=== PATIENT | female | born 1965 | race Caucasian/White ===

== ENCOUNTER 2016-04-20 05:02 | Inpatient (IN) | payer OTHER ==
[2016-04-20] MEDS ORDERED: ONDANSETRON 4 MG/2 ML VIAL ONE (05:13)
[2016-04-20] MEDS ORDERED: ONDANSETRON 4 MG/2 ML VIAL IVP ONE (05:15)
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
[2016-04-20] MEDS ORDERED: NS 1,000 ML IV ONE ×2 (05:16→05:56)
[2016-04-20] MEDS ORDERED: NALOXONE HCL 0.4 MG/ML INJ ONE (05:21)
[2016-04-20] MEDS ORDERED: NALOXONE HCL 0.4 MG/ML INJ IVP ONE (05:26)
--- NOTE | 2016-04-20 05:26 | CPEKG ---
Heart Rate: 124 RR Interval: 484 P-R Interval: 176 QRSD Interval: 94 QT Interval: 336 QTC Interval: 483 P Val[place]: 51 QRS Valmeyer: 101 T Wave Valmeyer: 233 EKG Severity - ABNORMAL ECG - EKG Impression: sinus rhythm EKG Impression: PROBABLE RVH W/ SECONDARY REPOL ABNORMALITY EKG Impression: significant artifact Electronically Signed By: Jadyn Scruggs 20-Apr-2016 13:16:40
[2016-04-20 05:29] LABS: % IMMATURE GRANULYOCYTES 0.4 % (0.0-1.1); ABSOLUTE IMMATURE GRANULOCYTES 0.05 10^3/uL (0.00-0.10); ADD DIFF? NO; ADD MORPH? NO; ADD SCAN? NO; ATYPICAL LYMPHOCYTE FLAG 0 (0-99); FRAGMENT RBC FLAG 0 (0-99); HEMATOCRIT 38.7 % (38.0-47.0); HEMOGLOBIN 12.7 g/dL (12.6-16.3); LEFT SHIFT FLG 0 (0-99); LIPEMIA HEMOLYSIS FLAG 80 (0-99); MEAN CELL HEMOGLOBIN CONCENTR. 32.8 g/dL (32.4-36.7); MEAN CELL VOLUME 88.4 fL (81.5-99.8); MEAN PLATELET VOLUME 9.8 fL (8.7-11.7); PLATELET CLUMPS FLAG 0 (0-99); PLATELET COUNT 169 10^3/uL (150-400); RED BLOOD CELL COUNT 4.38 10^6/uL (4.18-5.33); RED CELL DISTRIBUTION WIDTH 14.8 % (11.5-15.2)
[2016-04-20 05:35] LABS: ALANINE AMINOTRANSFERASE 14 IU/L (9-52); ALBUMIN 4.6 g/dL (3.5-5.0); ALKALINE PHOSPHATASE 39 IU/L (38-126); ANION GAP 17 mEq/L (8-16); ASPARTATE AMINOTRANSFERASE 21 IU/L (14-46); BILIRUBIN,TOTAL 0.8 mg/dL (0.1-1.4); BILIRUBIN-CONJUGATED 0.5 mg/dL (0.0-0.5); BILIRUBIN-UNCONJUGATED 0.3 mg/dL (0.0-1.1); CALCIUM 9.6 mg/dL (8.5-10.4); CARBON DIOXIDE 18 mEq/l (22-31); CHLORIDE 109 mEq/L (97-110); CREATININE 0.8 mg/dL (0.6-1.0); ETHANOL SERUM < 10 mg/dL (0-10); GLOMERULAR FILTRATION RATE > 60; GLUCOSE 144 mg/dL (70-100); MAGNESIUM 1.9 mg/dL (1.6-2.3); POTASSIUM 3.9 mEq/L (3.5-5.2); SALICYLATE < 1.0 mg/dL (2.0-20.0); SODIUM 144 mEq/L (134-144); TOTAL PROTEIN 7.2 g/dL (6.3-8.2)
[2016-04-20 05:36] LABS: APTT 25.8 SEC (23.0-38.0); INR 1.11 (0.83-1.16); PROTIME(PATIENT) 14.2 SEC (12.0-15.0)
[2016-04-20 05:46] LABS: CREATINE KINASE-MB FRACTION 1.11 ng/mL (0-3.19); TROPONIN I < 0.012 ng/mL (0-0.034)
[2016-04-20] MEDS ORDERED: LORazepam 2 MG/ML INJ IVP ONE ×2 (06:16→08:27)
[2016-04-20 06:28] LABS: COLOR PALE YELLOW; LEUKOCYTE ESTERASE,URINE NEGATIVE (NEGATIVE); NITRITE,URINE NEGATIVE (NEGATIVE)
[2016-04-20] MEDS ORDERED: levETIRAcetam 1,000 MG in NS 100 ML IV ONE (06:41)
[2016-04-20] MEDS ORDERED: NS IV ONE (06:45)
[2016-04-20] MEDS ORDERED: FOSPHENYTOIN IV ONE (06:45)
[2016-04-20] MEDS ORDERED: HYDROmorphONE/DILAUDID 1 MG/ML SYR IVP PRN (07:21)
[2016-04-20] MEDS ORDERED: ONDANSETRON DISINTEGRATING 4 MG TAB PO PRN (07:21)
[2016-04-20] MEDS ORDERED: ONDANSETRON 4 MG/2 ML VIAL IVP PRN (07:21)
[2016-04-20] MEDS ORDERED: oxyCODONE IR 5 MG TAB PO PRN (07:21)
[2016-04-20] MEDS ORDERED: LORazepam 2 MG/ML INJ IVP PRN (07:21)
[2016-04-20] MEDS ORDERED: ACETAMINOPHEN 325 MG TAB PO PRN (07:21)
[2016-04-20] MEDS ORDERED: PROMETHAZINE HCL 25 MG/ML INJ IVP PRN (07:21)
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
[2016-04-20] MEDS: NS 1,000 ML IV SCH (10:46)
[2016-04-20] MEDS: ZONISAMIDE 100 MG CAP PO SCH ×2 (17:37→21:53)
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
[2016-04-20] MEDS: levETIRAcetam 500 MG in NS 100 ML IV SCH (21:52)
[2016-04-20] MEDS: OXYCODONE/APAP 5/325 TAB PO PRN (22:16)
[2016-04-20] MEDS: LAMOTRIGINE 250 MG PO SCH (22:30)
[2016-04-21] MEDS ORDERED: NS BOLUS 1000 ML (Wide open) IV ONE (02:00)
[2016-04-21 06:15] LABS: % IMMATURE GRANULYOCYTES 0.3 % (0.0-1.1); ABSOLUTE IMMATURE GRANULOCYTES 0.02 10^3/uL (0.00-0.10); ADD DIFF? NO; ADD MORPH? NO; ADD SCAN? NO; ATYPICAL LYMPHOCYTE FLAG 0 (0-99); FRAGMENT RBC FLAG 0 (0-99); HEMATOCRIT 28.5 % (38.0-47.0); HEMOGLOBIN 9.4 g/dL (12.6-16.3); LEFT SHIFT FLG 0 (0-99); LIPEMIA HEMOLYSIS FLAG 80 (0-99); MEAN CELL HEMOGLOBIN 28.9 pg (27.9-34.1); MEAN CELL VOLUME 87.7 fL (81.5-99.8); MEAN PLATELET VOLUME 9.6 fL (8.7-11.7); PLATELET CLUMPS FLAG 0 (0-99); PLATELET COUNT 100 10^3/uL (150-400); RED BLOOD CELL COUNT 3.25 10^6/uL (4.18-5.33); RED CELL DISTRIBUTION WIDTH 14.6 % (11.5-15.2)
[2016-04-21 06:29] LABS: ANION GAP 3 mEq/L (8-16); CALCIUM 7.7 mg/dL (8.5-10.4); CARBON DIOXIDE 22 mEq/l (22-31); CHLORIDE 117 mEq/L (97-110); CREATININE 0.5 mg/dL (0.6-1.0); GLOMERULAR FILTRATION RATE > 60; GLUCOSE 73 mg/dL (70-100); POTASSIUM 3.4 mEq/L (3.5-5.2); SODIUM 142 mEq/L (134-144)
[2016-04-21] MEDS: NS 1,000 ML IV SCH (07:44)
[2016-04-21] MEDS ORDERED: ALBUMIN 5% 500 ML IV ONE (08:16)
[2016-04-21] MEDS ORDERED: NS 1,000 ML IV ONE (08:16)
[2016-04-21] MEDS ORDERED: NS W/ 20 KCl/L 1,000 ML IV SCH (08:30)
[2016-04-21] MEDS: LAMOTRIGINE 250 MG PO SCH ×2 (09:50→19:57)
[2016-04-21] MEDS: ZONISAMIDE 100 MG CAP PO SCH ×3 (09:51→19:56)
[2016-04-21] MEDS: levETIRAcetam 500 MG in NS 100 ML IV SCH (09:51)
--- NOTE | 2016-04-21 10:13 | PDCONSULT ---
Building Consultant Note: HOSPITAL NEUROLOGY CONSULT REQUESTING: Shailesh Betancourt MD REASON: seizure HPI: This is a 51-year-old right-handed woman with a history of drug-resistant localization-related epilepsy who is status post right anterior mesial temporal lobectomy who presented to our facility early yesterday morning due to a suspected seizure. History is provided by the patient. Collateral history is also provided by the patient's sister who is at bedside as well the patient's mother who is available via phone. As a brief background, records in [facility] have been reviewed. Patient apparently had onset of seizures at age 40 with a background of alcohol abuse. She was having frequent seizures manifest as a sense of Hilda vu then impaired awareness with lip-smacking and then tonic and clonic movements with a postictal confusional state. She had been tried on multiple anti seizure medications including phenytoin, levetiracetam valproic acid, oxcarbazepine, lacosamide, gabapentin and primidone. She currently is using lamotrigine and zonisamide. She has had several surface EEGs with epilepsy monitoring unit admission revealing bihemispheric independent interictal discharges as well as right temporal slowing and right TIRDA once her medications were tapered. MRI had shown some indications of right mesial temporal sclerosis. She did undergo right anterior mesial temporal lobectomy in May of 2015-there was no preceding invasive cortical eeg performed. She states since the surgery she has continued to have seizures, though she is unsure of the exact frequency. She states she gets "little seizures" generally manifest as periods of staring off in space as witnessed by family. She states she may have had a couple generalized convulsions. She states she recently visited with her epileptologist and her lamotrigine was increased, but she is not sure of the dose. Patient states that the morning of presentation she awoke early in the morning to use the bathroom. When she stood up from bed she states she felt an overwhelming sensation of "". She felt like her legs were "rubber" so she sat on her stairs. She states she then felt an overwhelming sensation that her legs were being " poisoned" and this sensation was ascending up into her head. She states she felt her arms stiffening in front of her body. She maintained awareness. She states that she was unable to move her legs, but also tells me that she started kick the door in front of her stairs in order to get her neighbor's attention. She states she had an overwhelming sense of fear and started screaming for help. Eventually neighbors did arrive finding her screaming uncontrollably on the floor. She was brought to our emergency room. Patient states that she never lost awareness. She states that after this event she had an overwhelming sense of global weakness. Apparently, last night the patient had another possible seizure as witnessed by her mother. Her mother states that and the patient notified her that she was about to have a seizure and the patient stiffened up in the extremities, though had preserved awareness and remembers this event. Patient states she has been compliant with her antiseizure medications without any missed doses. She states that she has been compliant in taking her daily narcotics, though, her urine drug screen does show no opiates present. She has had no recent illnesses. She denies any increasing stress at home. She denies missing meals or any sleep deprivation. No headaches, fevers, chills. ROS: As per the HPI, otherwise a complete 12 point ROS was performed and is negative ALLERGIES AND MEDS: As recorded in the EMR - reviewed and reconciled PFSH: As per the intake H&P by Dr. Betancourt from 04/20/16 EXAM: GEN: Thin woman appearing older than stated age laying in NAD HEENT: bruise on the left side of her chin, sclera anicteric, conjunctiva not injected, MMM, oropharynx clear, no scalp tenderness, no tongue laceration NECK: supple, nontender, no meningismus CV: RRR s1 s2 wo m/r/c/g. Carotid pulses 2+ wo bruit INTEG: scattered healing scrapes on the left knuckles and left anterior tibial region NEURO: MS: awake, alert, oriented to all spheres. Speech nondysarthric. No language disturbance. Follows commands. Attends to both sides. Recent/remote memory grossly intact. Mood is very labile with periods of tearfulness alternating with periods of anxiety and agitation. Adequate fund of knowledge. CN: pupils 3mm round and reactive. Fundi with sharp discs. VFF. Primary gaze centered. Full ocular motility. Facial sensation preserved. Face symmetric. Hearing grossly intact to finger rub. Palatoglossal movements intact. Shoulder shrug and head turn strong. MOTOR: reduced bulk, normal tone. No adventitial movements. Full power throughout. SENSORY: intact to all modalities throughout. No extinction. COORD: no ataxia FN/HS. cD preserved. Romberg neg. REFLEX: plantars down. No clonus. DTRS 2+/4. GAIT: deferred to PT safety evaluation DATA REVIEW: Labs reviewed in EMR PERSONALLY INTERPRETED RESULTS AND DATA: CT head wo shows post-surgical changes in the right anteriormedial temoral region. IMPRESSION AND RECOMMENDATIONS: // ? BREAKTHROUGH SEIZURE // DRUG RESISTANT LOCALIZATION RELATED EPILEPSY - LIKELY MULTIFOCAL Patient with an episode as described in the HPI which is not compelling for true seizure, however, I do wonder if the global sensation of fear and sense of dying may be more of a temporal lobe aura. Her preserved awareness would argue against a generalized epileptiform event. Same goes for last night's event where she had maintained awareness despite stiffening of her extremities. I am not sure if these events were provoked. She does not have any opiates on her drug screen, so there is the possibility of withdrawal provoked events. She certainly does have multiple substrate for seizures given her prior EEG findings of bihemispheric independent interictal discharges. Her temporal lobectomy does not preclude ongoing seizures from that region as well, particularly given the lack of invasive EEG monitoring prior to the surgery. I think she is going to be prone to having breakthrough. At this point, I would continue on her current antiseizure medication regimen. If there is any continued suspicion for ongoing seizure activity, I would recommend she be transferred to her providers over at [facility] where they have continuous video EEG monitoring capabilities. Her epileptologist is also associated with that group. In the interim, please call for any suspected seizure activity. I recommended family take smartphone video of any suspected seizure activity for review as well. Continue seizure precautions Seizure safety was also reviewed with the patient including not driving per [place] state law as well as other safety measures such as not swimming or tub bathing alone, not climbing heights, not operating heavy machinery not performing other activities that could put herself or others in harm's way due to seizures.
[2016-04-21] MEDS: OXYCODONE/APAP 5/325 TAB PO PRN ×3 (10:33→19:57)
--- NOTE | 2016-04-21 18:31 | HOSPPROG ---
Hospitalist Progress Note Assessment/Plan: Assessment: 51-year-old female presents with acute on chronic seizure complicated by ongoing abnormal movements as well as generalized weakness, acute pain in foot and hand Plan: 1. Seizure. Acute on chronic, difficult to discern whether abnormal movements reported in the field were true epileptiform seizure or not but she did present with supportive laboratory data including acute lactic acidosis and leukocytosis -discussed with Dr. Cote from Neurology, he recommends continuing the patient 's current dosages of antiepileptic medications and not making any dose adjustments at this time given that the patient has an extensive history of dose titration as with her primary neurologist Dr. Vogt and any adjustments on our part would likely confuse the overall outpatient management strategy -we both suspect that the patient has a combination of epileptiform and non epileptiform movements, as some of her description of events do not seem consistent with true epileptiform seizures and the witnessed event overnight is not compelling as an epileptiform seizure -that said, the only way to confirm this surgeon is to place the patient on continuous video EEG monitoring, and we do not have that capability at our facility -if patient has any recurrent abnormal movements, we would recommend transferring her to either [facility] or [facility], whichever 1 is able to accept the patient and provide continuous video EEG monitoring -if the patient does have any abnormal movements overnight, provide her with IV Ativan empirically 2. Metabolic acidosis. Acute, secondary to lactic acid most likely released in the setting of seizure, clear with IV fluids 3. Hypotension. Most likely nonpathologic, most likely patient's baseline, lactic acid level has been normal, heart rate has been normal, patient is not symptomatic, avoid further IV fluid boluses -chest x-ray demonstrates atelectasis but no focal infiltrate (personally interpreted), hold on chest CT and she does not currently have any infectious symptoms. -will repeat venous lactic acid level in the a.m. to further confirm that this is nonpathologic -encourage physical and occupational therapy did work with the patient despite systolic blood pressures in the 80s to 90s range, and was the patient is otherwise asymptomatic 4. Generalized weakness. Patient is intermittently expressed that she has generalized weakness but is nonfocal and fluctuates during examinations. Is unclear whether the patient has true deconditioning or whether there is a volitional or psychosomatic component. -she is covered in ecchymoses, she denies any physical abuse and reports that they are secondary to recurrent falls -she is currently on safe to care for self and cannot complete ADLs, requires PT and OT assessments -she may require half-way facility placement and an inpatient rehab consult has been placed -our continuous pillowcase cutter has contacted [facility] a to offer repatriation, they have declined 5. Acute foot pain and hand pain. New problem this provider, further workup indicated. Significant pain on palpation of her right medial malleoli as well as calcaneus, patient reports she has so much pain she is unable to bear weight , has swelling on the dorsum of her right hand and pain with extension of fingers -given her extensive ecchymoses in history of traumatic falls, warrants x-rays to rule out fracture -if no evidence of fracture, apply ice to area, provide scheduled nonsteroidal anti-inflammatory medications Diet. Regular Prophylaxis. High risk patient, Lovenox 40 Code. Full Disposition. Anticipated discharge uncertain at this time, upgraded to inpatient admission status as the patient is unsafe to ambulate and complete ADLs and requires additional therapy assessments and consideration of half-way facility placement as well as further diagnostic workup for her acute foot and hand pain and monitoring for any further seizure-like activity. Subjective: Patient reports she had abnormal movements overnight including rigidity of limbs, has pain in her hand and heel Objective: Vital Signs Temp Pulse Resp BP Pulse Ox 36.6 C 68 18 96/61 L 98 04/21/16 16:00 04/21/16 16:00 04/21/16 16:00 04/21/16 16:00 04/21/16 16:00 Laboratory Results 04/21/16 05:55 04/21/16 05:55 04/20/16 04/21/16 04/22/16 05:59 05:59 05:59 Intake Total 7398 Output Total 2600 1351 Balance 4798 -1351 PT 14.2 SEC (12.0-15.0) 04/20/16 05:00 INR 1.11 (0.83-1.16) 04/20/16 05:00 - Physical Exam Constitutional: chronically ill appearing, uncomfortable, unkempt, No not in pain Cardiovascular: No systolic murmur, No irregularly irregular, No tachycardia, No edema Respiratory: no respiratory distress, no rales or rhonchi, clear to auscultation Gastrointestinal: normoactive bowel sounds, soft, non-tender abdomen, no palpable masses Skin: other (Scattered ecchymoses) Musculoskeletal: other (Tenderness over the right plantar surface of the calcaneus, tenderness over the right medial malleoli full range of motion of the right ankle without any pain elicited, pain with extension of the fingers in the right hand, dorsal edema on the right hand, full range of motion of the right wrist without pain, no tenderness to palpation over the right wrist joint) Neurologic: AAOx3, sensation intact bilaterally, No facial droop Psychiatric: not encephalopathic, thought process linear, anxious, No agitated ICD10 Worksheet Patient Problems: Problems Problem Status Onset Seizure Acute Multiple contusions Acute Falling Acute
[2016-04-22 05:42] LABS: % IMMATURE GRANULYOCYTES 0.2 % (0.0-1.1); ABSOLUTE IMMATURE GRANULOCYTES 0.01 10^3/uL (0.00-0.10); ADD DIFF? NO; ADD MORPH? NO; ADD SCAN? NO; ATYPICAL LYMPHOCYTE FLAG 0 (0-99); FRAGMENT RBC FLAG 0 (0-99); HEMATOCRIT 29.3 % (38.0-47.0); HEMOGLOBIN 9.7 g/dL (12.6-16.3); LEFT SHIFT FLG 0 (0-99); LIPEMIA HEMOLYSIS FLAG 80 (0-99); MEAN CELL HEMOGLOBIN 29.1 pg (27.9-34.1); MEAN CELL HEMOGLOBIN CONCENTR. 33.1 g/dL (32.4-36.7); MEAN PLATELET VOLUME 9.7 fL (8.7-11.7); PLATELET CLUMPS FLAG 0 (0-99); PLATELET COUNT 104 10^3/uL (150-400); RED BLOOD CELL COUNT 3.33 10^6/uL (4.18-5.33); RED CELL DISTRIBUTION WIDTH 14.8 % (11.5-15.2)
[2016-04-22 05:56] VITALS: PULSE 67
[2016-04-22 05:56] LABS: ALANINE AMINOTRANSFERASE 27 IU/L (9-52); ALBUMIN 3.2 g/dL (3.5-5.0); ALKALINE PHOSPHATASE 34 IU/L (38-126); ANION GAP 6 mEq/L (8-16); ASPARTATE AMINOTRANSFERASE 22 IU/L (14-46); BILIRUBIN,TOTAL 0.8 mg/dL (0.1-1.4); CALCIUM 8.4 mg/dL (8.5-10.4); CARBON DIOXIDE 21 mEq/l (22-31); CHLORIDE 115 mEq/L (97-110); CREATININE 0.5 mg/dL (0.6-1.0); GLOMERULAR FILTRATION RATE > 60; GLUCOSE 74 mg/dL (70-100); POTASSIUM 3.9 mEq/L (3.5-5.2); SODIUM 142 mEq/L (134-144); TOTAL PROTEIN 5.1 g/dL (6.3-8.2)
[2016-04-22 07:29] VITALS: RESP 16; TEMP 97.3
[2016-04-22] MEDS: ZONISAMIDE 100 MG CAP PO SCH (09:24)
[2016-04-22] MEDS: LAMOTRIGINE 250 MG PO SCH (09:24)
--- NOTE | 2016-04-22 11:13 | HOSPPROG ---
Hospitalist Progress Note Assessment/Plan: 51-year-old female presents with acute on chronic seizure complicated by ongoing abnormal movements as well as generalized weakness, acute pain in foot and hand Plan: 1. Seizure. Acute on chronic, none further appreciate neurology eval nop change in meds 2. Metabolic acidosis. Acute, secondary to lactic acid most likely released in the setting of seizure, clear with IV fluids resolved 2/2 seizure 3. Hypotension. likely her baseline 4. Generalized weakness. resolved 5. Acute foot pain and hand pain. neg films Diet. Regular Prophylaxis. High risk patient, Lovenox 40 Code. Full Disposition. home today > 30 minutes Subjective: anxious for dc. feels she is appropriate for home dc Objective: Vital Signs Temp Pulse Resp BP Pulse Ox 36.3 C 67 16 91/53 L 100 04/22/16 07:27 04/22/16 07:27 04/22/16 07:27 04/22/16 07:27 04/22/16 07:27 Laboratory Results 04/22/16 05:25 04/22/16 05:25 04/21/16 04/22/16 04/23/16 05:59 05:59 05:59 Intake Total 2075 Output Total 1000 Balance 1075 PT 14.2 SEC (12.0-15.0) 04/20/16 05:00 INR 1.11 (0.83-1.16) 04/20/16 05:00 - Physical Exam Constitutional: no apparent distress, appears nourished Eyes: PERRL, anicteric sclera Ears, Nose, Mouth, Throat: moist mucous membranes, hearing normal Cardiovascular: regular rate and rhythym, no murmur, rub, or gallop Respiratory: no respiratory distress, no rales or rhonchi Gastrointestinal: normoactive bowel sounds, soft, non-tender abdomen Genitourinary: no bladder fullness, No garcia in urethra Skin: warm, normal color Musculoskeletal: full muscle strength Neurologic: AAOx3 ICD10 Worksheet Patient Problems: Problems Problem Status Onset Falling Acute Multiple contusions Acute Seizure Acute
[2016-04-22 11:17] VITALS: BP 105/60; O2SAT 95
--- NOTE | 2016-04-22 12:05 | PDIAF ---
- Diagnosis Diagnosis: seizure Code Status: Full Code - Medication Management Discharge Medications: Medications to Continue on Transfer Ergocalciferol [Vitamin D2 (*)] 50,000 unit PO Q7D 04/20/16 [Last Taken Unknown] Zonisamide [Zonegran 100MG (*)] 100 mg PO DAILY@09,16 04/20/16 [Last Taken Unknown] Zonisamide [Zonegran 100MG (*)] 200 mg PO HS 04/20/16 [Last Taken Unknown] lamOTRIGine [Lamictal XR] 250 mg PO BID 04/20/16 [Last Taken Unknown] oxyCODONE/APAP 5/325 [Percocet 5/325 (*)] 1 - 2 tab PO Q4-6PRN PRN 04/20/16 [ Last Taken Unknown] Discharge Medications: Refer to the Discharge Home Medication list for PRN reason. - Orders Services needed: Home Care, Registered Nurse, Physical Therapy, Occupational Therapy Home Care Face to Face: I certify that this patient was under my care and that I had the required [id number] encounter meeting the encounter requirements on the discharge day. My findings support the fact that the patient is homebound as defined in CMS Chapter 7 Medicare Benefits Manual 30.1.1, The condition of the patient is such that there exists a normal inability to leave home and consequently, leaving home would require a considerable and taxing effort. Diet Texture: Regular Texture Diet, Thin Liquids, Meds Whole w/Liquids - Follow Up Care Current Providers and Referrals: Patient,NotPresent [Unknown] - As per Instructions
--- NOTE | 2016-04-22 19:07 | GDS ---
[f rep st] DISCHARGE SUMMARY DISCHARGE DIAGNOSES: 1. Seizure disorder. 2. Breakthrough seizures. 3. History of alcoholism, now sober. 4. History of ventricular fibrillation arrest with automatic implantable cardioverter-defibrillator implantation, and explantation that occurred remotely. 5. Continuous narcotic dependence. 6. History of traumatic brain injury. HISTORY OF PRESENT ILLNESS: Please see admission history and physical by Dr. Shailesh Betancourt. The patient presented with seizures. She had a head CT showing postoperative changes in the right t emporal region with associated encephalomalacia. The patient had no further seizures. Seen by Neur ology, who recommended no further change in her antiseizure medicines. She had a change with her ne urologist in [place] just prior to admission. She was seen by PT and OT, as well as speech language pathology. Switchback some home care was helpful, s o she had RN PT OT, as well as in-home care set up for her, and she was discharged today on unchange d medication regimen. /[id number]/MODL
== END 2016-04-22 11:45 | disposition home health service (06) | DRG 101 ==
LOC: EDUNIT# → INTOOBSV 06:46 → F2N 10:30 → OBSVTOIN 04-21 18:32
PROVIDERS: ADMIT Internal Medicine; ATTEND Internal Medicine
DX: G40.909 Epilepsy, unspecified, not intractable, without status epilepticus (principal); F10.21 Alcohol dependence, in remission; S00.93XA Contusion of unspecified part of head, initial encounter; W19.XXXA Unspecified fall, initial encounter; F11.20 Opioid dependence, uncomplicated; G89.29 Other chronic pain; E87.2 Acidosis; R53.1 Weakness; E46 Unspecified protein-calorie malnutrition; I95.9 Hypotension, unspecified; M79.671 Pain in right foot; M79.641 Pain in right hand; I42.0 Dilated cardiomyopathy; I50.9 Heart failure, unspecified; F17.200 Nicotine dependence, unspecified, uncomplicated; Z87.820 Personal history of traumatic brain injury; Z88.0 Allergy status to penicillin
CPT/HCPCS: 80175-90; 80305; 92523-GN; 92526-GN; 92610-GN; 96374; 97116-GP; 97161-GP; 97166-GO; 97535-GO; G0378; G0480; J1953; J2310; J2405; P9041; Q2009